=== PATIENT | male | born 1995 | race African-American/Black ===

== ENCOUNTER 2017-01-24 13:49 | Emergency (ER) | payer SELFPAY ==
[2017-01-24 14:18] VITALS: BP 143/84
--- NOTE | 2017-01-24 14:48 | EDM.PDOC ---
ED HPI RENAL/ - General Chief Complaint: Genitourinary Problem Stated Complaint: WANTS CHECKED FOR STD Time Seen by Provider: 01/24/17 14:34 Source of Information: Reports: Patient History Limitations: Reports: No limitations - History of Present Illness INITIAL COMMENTS - FREE TEXT/NARRATIVE: Patient is a 21-year-old man with concerns he may have syphilis. Developed a small painful lesion to the dorsal aspect shaft of his penis with increased swelling noted. This started approximately 2 days ago. Since then the swelling and pain have subsided. He has a small area with dry skin to the top of it with no drainage/redness noted. States his girlfriend has been cheating on him. Shes had unprotected sex with multiple partners that may have syphilis. He does have a history of STDs in the past. States this was gonorrhea/Chlamydia treated with antibiotics. He has no painful urination at this time. Denies additional lesions to his genital area. In addition patient utilizes marijuana daily and uses methamphetamines with last use this past Saturday. He drinks alcohol every day. - Related Data Allergies/ADRs: Allergies Allergy/AdvReac Type Severity Reaction Status Date / Time amoxicillin Allergy Rash Verified 01/24/17 14:19 Home Meds: Home Meds . [No Known Home Meds] 01/24/17 [History] Past Medical History - Past Health History Medical/Surgical History: Denies Medical/Surgical History Social & Family History - Family History Family Medical History: Noncontributory - Tobacco Use Smoking Status *Q: Current Every Day Smoker Years of Tobacco use: 8 Packs/Tins Daily: 0.2 - Caffeine Use Caffeine Use: Reports: Coffee, Energy drinks, Soda, Tea - Alcohol Use Days Per Week of Alcohol Use: 6 Number of Drinks Per Day: 5 Total Drinks Per Week: 30 - Recreational Drug Use Recreational Drug Use: Yes Recreational Drug Type: Reports: Marijuana/Hashish, Methamphetamine ED ROS GENERAL - Review of Systems Review Of Systems: See Below : Denies: discharge, dysuria, frequency, hematuria, pain, urgency Skin: Reports: lesions (one lesion to the shaft of penis) ED EXAM, RENAL/ - Physical Exam Exam: See Below Exam Limited By: No limitations General Appearance: alert, WD/WN, no apparent distress Ears: hearing grossly normal Nose: normal inspection Throat/Mouth: Normal voice, No airway compromise Neck: normal inspection, supple Respiratory/Chest: no respiratory distress, lungs clear, normal breath sounds Cardiovascular: normal peripheral pulses, regular rate, rhythm GI/Abdominal: normal bowel sounds, soft, non tender (Male) Exam: Other (small 2mm lesion to the dorsal aspect of his penis. it is elevated with white piece of skin/scab present. no drainage, redness, purulent drainage. no additional lesions. Does not appear to be genital warts , molloscum contagiosum, syphilis, herpes, or a painful chancre. No drainage noted from the urethra meatus. ). No: Circumcised Course - Vital Signs Last Recorded V/S: Last Vital Signs Temp 98.7 F 01/24/17 14:14 Pulse 67 01/24/17 14:14 Resp 16 01/24/17 14:14 BP 143/84 H 01/24/17 14:14 Pulse Ox 100 01/24/17 14:14 - Orders/Labs/Meds Orders: Active Orders 24 hr Category Date Time Status RPR [REF] Stat Lab 01/24/17 15:00 Received - Re-Assessments/Exams Free Text/Narrative Re-Assessment/Exam: He has requested to be tested for only syphilis here in the ED. This is a send out. He will go to [facility] for further STD testing. Patient to be discharged home with instructions. Departure - Departure Time of Disposition: 15:23 Disposition: Home, Self-Care 01 Clinical Impression: Concern about STD in male without diagnosis Referrals: PCP,None [Primary Care Provider] - Juno Shaffer PA-C [Physician Coffee Supervisor] - Forms: ED Department Discharge Additional Instructions: Results of syphilis test will be available in the next 3-5 days. If you have not been contacted please call the ER at [phone] for lab results. Followup with a provider at [facility] as needed. For further STD testing go to [facility]. Refrain from sexual contact until all testing has been conducted. Refrain from methamphetamine or marijuana use. For further treatment for alcohol and recreational drugs [facility] and treatment. Return back to ED as needed for worsening symptoms. - My Orders Last 24 Hours: My Active Orders 01/24/17 15:00 RPR [REF] Stat - Assessment/Plan Last 24 Hours: My Active Orders 01/24/17 15:00 RPR [REF] Stat
== END 2017-01-24 15:31 | disposition home or self-care (01) ==
LOC: JD.ED 13:49
DX: N50.9 Disorder of male genital organs, unspecified (principal); F17.210 Nicotine dependence, cigarettes, uncomplicated; Z88.1 Allergy status to other antibiotic agents
CPT/HCPCS: 36415; 86592; 99281; 99283

== ENCOUNTER 2017-03-28 17:11 | Emergency (ER) | payer SELFPAY ==
[2017-03-28 17:35] VITALS: BP 127/73
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
--- NOTE | 2017-03-28 19:19 | CR ---
Left ankle: 4 views of the left ankle were obtained. Comparison: No previous study. Ankle mortise is symmetric. Lucent line is noted on one view within the lateral malleolus. Difficult to exclude a nondisplaced fracture. No additional bony abnormality is appreciated. Impression: 1. Difficult to exclude a nondisplaced distal fibular fracture through the lateral malleolus. Follow-up study would be helpful in 10-14 days to rule out or rule in this possibility if clinically indicated. 2. Left ankle study is otherwise unremarkable. Diagnostic code #3
== END 2017-03-28 18:45 | disposition home or self-care (01) ==
LOC: JD.ED 17:11
DX: S93.402A Sprain of unspecified ligament of left ankle, initial encounter (principal); X50.1XXA Overexertion from prolonged static or awkward postures, initial encounter; F17.210 Nicotine dependence, cigarettes, uncomplicated; Z88.1 Allergy status to other antibiotic agents; Y93.55 Activity, bike riding
CPT/HCPCS: 73610-26-LT; 73610-LT; 99282; 99283

== ENCOUNTER 2017-06-09 00:11 | Emergency (ER) | payer SELFPAY ==
[2017-06-09] MEDS ORDERED: Lidocaine 1% with EPINEPHrine 1:100,000 20 ML MDV INJECT ONE (00:58)
--- NOTE | 2017-06-09 01:52 | EDM.PDOC ---
ED HPI GENERAL MEDICAL PROBLEM - General Chief Complaint: Laceration Stated Complaint: LACERATION TO LEFT HAND Time Seen by Provider: 06/09/17 00:25 Source of Information: Reports: Patient History Limitations: Reports: No Limitations - History of Present Illness INITIAL COMMENTS - FREE TEXT/NARRATIVE: 21-year-old male with left thumb injury. He was cutting food with a kitchen knife and accidentally stabbed his left thumb web area. Denies additional injury. This was just prior to coming to the emergency department. Mild bleeding , moderate pain. No numbness or weakness. Left 1-Thumb Pain Score (Numeric/FACES): 4 - Related Data Allergies Allergy/AdvReac Type Severity Reaction Status Date / Time amoxicillin Allergy Rash Verified 03/28/17 17:35 Home Meds: Home Meds . [No Known Home Meds] 01/24/17 [History] Past Medical History - Past Health History Medical/Surgical History: Denies Medical/Surgical History Social & Family History - Family History Family Medical History: Noncontributory - Tobacco Use Smoking Status *Q: Never Smoker Years of Tobacco use: 9 Packs/Tins Daily: 1 Second Hand Smoke Exposure: No - Caffeine Use Caffeine Use: Reports: Energy Drinks - Alcohol Use Days Per Week of Alcohol Use: 6 Number of Drinks Per Day: 5 Total Drinks Per Week: 30 - Recreational Drug Use Recreational Drug Use: Yes Drug Use in Last 12 Months: Yes Recreational Drug Type: Reports: Marijuana/Hashish Recreational Drug Use Frequency: Daily ED ROS GENERAL - Review of Systems Review Of Systems: See Below Constitutional: Reports: No Symptoms Respiratory: Reports: No Symptoms Skin: Reports: Wound Neurological: Denies: Numbness, Paresthesia ED EXAM, SKIN/RASH Exam: See Below Exam Limited By: No Limitations General Appearance: Alert, WD/WN, No Apparent Distress Extremities: Other (Left hand: 1 cm laceration to the dorsal surface of the webspace between the thumb and index finger, subcutaneous, no visible foreign body, minimal bleeding, full range of motion of thumb and fingers) ED SKIN PROCEDURES - Laceration/Wound Repair Left Hand Lac/Wound length In cm: 1 Appearance: Subcutaneous Distal NVT: Neuro & Vascular Intact, No Tendon Injury Anesthetic Type: Local Local Anesthesia - Lidocaine (Xylocaine): 1% With EPI Exploration/Debridement/Repair: Wound Explored, in a Bloodless Field, Explored to Base, No Foreign Material Found Closed with: Sutures Suture Size: other (5-0) # of Sutures: 1 Suture Type: Nylon, Simple Sterile Dressing Applied: Nurse Tetanus Status Addressed: Yes Complications: No Course - Vital Signs Last Recorded V/S: Last Vital Signs Temp 36.7 C 06/09/17 00:16 Pulse 78 06/09/17 00:16 Resp 16 06/09/17 00:16 BP Pulse Ox 100 06/09/17 00:16 - Orders/Labs/Meds Meds: Medications Discontinued Medications Generic Name Dose Route Start Last Admin Trade Name Clayton PRN Reason Stop Dose Admin Lidocaine/Epinephrine 20 ml 06/09/17 00:58 06/09/17 01:43 Xylocaine 1% With Epinephrine 1:100,000 INJECT 06/09/17 00:59 20 ml ONETIME ONE Administration Departure - Departure Time of Disposition: 01:50 Disposition: Home, Self-Care 01 Clinical Impression: Laceration of left hand Qualifiers: Encounter type: initial encounter Foreign body presence: without foreign body Qualified Code(s): S61.412A - Laceration without foreign body of left hand, initial encounter - Discharge Information Instructions: Laceration Care, Adult Referrals: PCP,None [Primary Care Provider] - Forms: ED Department Discharge Additional Instructions: 1. Keep wound clean and dry. OK to wash with gentle soap and water. After washing hand, cover wound with antibiotic cream and put a bandage on it. 2. Sutures should be removed in approximately 10 days. Call [phone] to schedule appointment with walk in clinic for removal. 3. Return to the ED if you have increased pain, swelling, or pus under the wound.
== END 2017-06-09 02:03 | disposition home or self-care (01) ==
LOC: JD.ED 00:11
DX: S61.412A Laceration without foreign body of left hand, initial encounter (principal); Z88.1 Allergy status to other antibiotic agents; W26.0XXA Contact with knife, initial encounter
CPT/HCPCS: 12001; 99282-25; 99283-25

== ENCOUNTER 2018-05-24 13:02 | Emergency (ER) | payer SELFPAY ==
[2018-05-24 13:26] VITALS: BP 124/73
--- NOTE | 2018-05-24 14:33 | EDM.PDOC ---
ED HPI GENERAL MEDICAL PROBLEM - General Chief Complaint: Genitourinary Problem Stated Complaint: STD TEST/SWELLING IN THROAT Time Seen by Provider: 05/24/18 14:33 Source of Information: Reports: Patient History Limitations: Reports: No Limitations - History of Present Illness INITIAL COMMENTS - FREE TEXT/NARRATIVE: 22-year-old male presents for evaluation and treatment 2 different complaints. Patient reports that he is having a sore throat and odynophagia. This has been going on for the last few days. He denies any fevers, chills, nausea or vomiting. Pain is primarily located on the right side. No cough. Reports knowing of somebody was recently diagnosed with strep but states he has not been around them recently. Patient is also complaining of a lesion to his dorsal penis. This is been present for the last few days. Was initially painful but is slowly improving. States that it does not hurt to urinate but when urine touches the lesion that is painful. No penile discharge. Reports that he's had unprotected intercourse with several woman over the last few months. The patient's ER records show that he was seen a little over a year ago for very similar complaint. He requested syphilis testing at that time which came back negative. Right Throat Pain Score (Numeric/FACES): 3 Perineal Area Pain Score (Numeric/FACES): 1 - Related Data Allergies Allergy/AdvReac Type Severity Reaction Status Date / Time amoxicillin Allergy Rash Verified 05/24/18 13:22 Home Meds: Home Meds valACYclovir [Valtrex] 1,000 mg PO BID #14 tab 05/24/18 [Rx] Past Medical History - Past Health History Medical/Surgical History: Denies Medical/Surgical History Social & Family History - Family History Family Medical History: Noncontributory - Tobacco Use Smoking Status *Q: Current Every Day Smoker Years of Tobacco use: 10 Packs/Tins Daily: 1 - Caffeine Use Caffeine Use: Reports: Energy Drinks, Soda - Recreational Drug Use Recreational Drug Type: Reports: Marijuana/Hashish Other Recreational Drug Type: last used yesterday ED ROS GENERAL - Review of Systems Review Of Systems: See Below Constitutional: Denies: Fever, Chills HEENT: Reports: Throat Pain, Other (reports odynophagia). Denies: Ear Pain Respiratory: Denies: Cough GI/Abdominal: Denies: Nausea, Vomiting : Reports: Other (denies any penile discharge ). Denies: Dysuria Skin: Reports: Lesions (penis) ED EXAM, RENAL/ - Physical Exam Exam: See Below Exam Limited By: No Limitations General Appearance: Alert, WD/WN, No Apparent Distress Ears: Normal External Exam Nose: Normal Inspection Throat/Mouth: Normal Inspection, Normal Lips, Normal Voice, No Airway Compromise , Other (right sided tonsilar exudate; no uluva deviation, no peritonsilar abscess appreciated ) Neck: Lymphadenopathy (L), Lymphadenopathy (R) Respiratory/Chest: No Respiratory Distress, Lungs Clear, Normal Breath Sounds Cardiovascular: Normal Peripheral Pulses, Regular Rate, Rhythm, No Murmur (Male) Exam: Penile Lesions (approximately 1cm dorsal penis, erythematous, no blisters) Neurological: Alert, Oriented, Normal Cognition Psychiatric: Normal Affect, Normal Mood Skin Exam: Warm, Dry, Normal Color Course - Vital Signs Last Recorded V/S: Last Vital Signs Temp 99.1 F 05/24/18 13:22 Pulse 90 05/24/18 13:22 Resp 14 05/24/18 13:22 BP 124/73 05/24/18 13:22 Pulse Ox 99 05/24/18 13:22 - Orders/Labs/Meds Labs: Laboratory Tests 05/24/18 05/24/18 05/24/18 Range/Units 13:25 14:50 14:50 WBC 4.86 (4.23-9.07) K/mm3 RBC 5.74 (4.63-6.08) M/mm3 Hgb 14.9 (13.7-17.5) gm/L Hct 45.6 (40.1-51.0) % MCV 79.4 (79.0-92.2) fl MCH 26.0 (25.7-32.2) pg MCHC 32.7 (32.2-35.5) g/dl RDW Std Deviation 40.6 (35.1-43.9) fL Plt Count 282 (163-337) K/mm3 MPV 9.3 L (9.4-12.3) fl Neut % (Auto) 45.3 (34.0-67.9) % Lymph % (Auto) 34.8 (21.8-53.1) % [place] % (Auto) 15.4 H (5.3-12.2) % Eos % (Auto) 2.9 (0.8-7.0) Baso % (Auto) 1.4 H (0.1-1.2) % Neut # (Auto) 2.20 (1.78-5.38) K/mm3 Lymph # (Auto) 1.69 (1.32-3.57) K/mm3 [place] # (Auto) 0.75 (0.30-0.82) K/mm3 Eos # (Auto) 0.14 (0.04-0.54) K/mm3 Baso # (Auto) 0.07 (0.01-0.08) K/mm3 Manual Slide Review Normal smear Urine Color Yellow (Yellow) Urine Appearance Clear (Clear) Urine pH 6.5 (5.0-8.0) Ur Specific [place] 1.025 (1.005-1.030) Urine Protein Negative (Negative) Urine Glucose (UA) Negative (Negative) Urine Ketones Negative (Negative) Urine Occult Blood Negative (Negative) Urine Nitrite Negative (Negative) Urine Bilirubin Negative (Negative) Urine Urobilinogen 0.2 (0.2-1.0) Ur Leukocyte Esterase Trace H (Negative) Urine RBC Not seen (0-5) /hpf Urine WBC 0-5 (0-5) /hpf Ur Epithelial Cells 0-5 (0-5) /hpf Urine Bacteria Few (FEW) /hpf Urine Mucus Few (FEW) /hpf Monoscreen Negative (NEGATIVE) - Re-Assessments/Exams Free Text/Narrative Re-Assessment/Exam: 05/24/18 14:39 Rapid strep returned negative. Concerned that the patient may have mono. He does not want to wait around for additional testing agrees to blood drawn I will call him with these results. His penile lesion is highly suspicious for herpes. He states that it is improving. We did swab the lesion to check for herpes. Discharge instructions as documented. 05/24/18 16:07 Called the patient and informed him of the negative monospot. 05/28/18 12:30 Patient presented to the ED today. He was informed of his positive HSV results. His GC/chlamydia canceled due to urine being to dilute. He was offered a retest but declined. He has not yet filled the Valtrex due to cost concerns. Encouraged him to go on fill the Rx as his penile lesion seems to be worsening. Educated on HXV infection and all questions answered to the best of my ability. Reports the sore throat is better. Departure - Departure Time of Disposition: 14:39 Disposition: Home, Self-Care 01 Condition: Fair Clinical Impression: Pharyngitis - Discharge Information Prescriptions: valACYclovir [Valtrex] 1,000 mg PO BID #14 tab Instructions: Pharyngitis, [id number] Referrals: PCP,None [Primary Care Provider] - Juno Shaffer PA-C [Physician Mine Inspector] - Forms: ED Department Discharge Additional Instructions: Take the Valtrex 1 tab twice a day for 7 days. We will call you notify you with your mono results later this afternoon. [id number] Tylenol or Motrin as needed for discomfort relief. Ensure drinking plenty of fluids. Recommend soft foods well your experiencing pain with swallowing. Recommend following up in the clinic to ensure that your symptoms have improved. recommend Juno Shaffer or Carmelita Valle at the [facility]. call [phone] to schedule with one of them. please return to the ER should you symptoms change or worsen.
== END 2018-05-24 14:55 | disposition home or self-care (01) ==
LOC: JD.ED 13:02
DX: J02.9 Acute pharyngitis, unspecified (principal); F17.210 Nicotine dependence, cigarettes, uncomplicated; Z88.1 Allergy status to other antibiotic agents
CPT/HCPCS: 36415; 81001; 85025; 86308; 87081; 87430; 87801; 99283

== ENCOUNTER 2018-07-18 10:32 | Emergency (ER) | payer SELFPAY ==
[2018-07-18 11:01] VITALS: BP 125/76
[2018-07-18] MEDS ORDERED: oxyCODONE 5 MG Tab PO ONE (11:27)
[2018-07-18] MEDS ORDERED: Acetaminophen Susp 325 MG/10.15 ML UD Cup PO ONE (11:33)
--- NOTE | 2018-07-18 11:48 | EDM.PDOC ---
ED HPI GENERAL MEDICAL PROBLEM - General Chief Complaint: Genitourinary Problem Stated Complaint: INJURY ON GROIN AREA Time Seen by Provider: 07/18/18 10:41 - History of Present Illness INITIAL COMMENTS - FREE TEXT/NARRATIVE: 22-year-old male presenting with chief complaint right testicular pain. 2 days ago the patient was jumping over a rail and caught the right side of his scrotum on it. Since that time he had increasing pain and swelling of the right side. Currently describes moderate to severe intensity pain localized to the right scrotum is nonradiating and worsened with movement. Patient can't describe any relieving factors tried no medications. Patient denies any dysuria or difficulty urinating. Associated Symptoms: Reports: No Other Symptoms Right Perineal Area Pain Score (Numeric/FACES): 8 - Related Data Allergies Allergy/AdvReac Type Severity Reaction Status Date / Time amoxicillin Allergy Rash Verified 07/18/18 10:46 Past Medical History - Past Health History Medical/Surgical History: Denies Medical/Surgical History - Infectious Disease History Infectious Disease History: Reports: Herpes Social & Family History - Family History Family Medical History: Noncontributory - Tobacco Use Smoking Status *Q: Current Every Day Smoker Years of Tobacco use: 11 Packs/Tins Daily: 1 Used Tobacco, but Quit: No - Caffeine Use Caffeine Use: Reports: Energy Drinks - Recreational Drug Use Recreational Drug Use: Yes Drug Use in Last 12 Months: Yes Recreational Drug Type: Reports: Marijuana/Hashish, Methamphetamine Other Recreational Drug Type: Uses marijuana every other day and methamphetamine every third day. Recreational Drug Use Frequency: Socially ED ROS GENERAL - Review of Systems Review Of Systems: See Below Constitutional: Reports: No Symptoms Respiratory: Reports: No Symptoms Cardiovascular: Reports: No Symptoms Endocrine: Reports: No Symptoms GI/Abdominal: Reports: No Symptoms : Reports: Other (Right testicular pain) Musculoskeletal: Reports: No Symptoms Skin: Reports: No Symptoms ED EXAM, RENAL/ - Physical Exam Exam: See Below Exam Limited By: No Limitations General Appearance: Alert Nose: Normal Inspection Head: Atraumatic, Normocephalic Respiratory/Chest: No Respiratory Distress Cardiovascular: Normal Peripheral Pulses, Regular Rate, Rhythm GI/Abdominal: Soft, Non-Tender (Male) Exam: No Hernia, Other (Right scrotum and testicle was hard, tender to palpation with a high riding leg. Left testicle is normal soft nontender to palpation. No abnormalities noted of the penis. No evidence of inguinal hernia.) Back Exam: Normal Inspection, Full Range of Motion Course - Vital Signs Last Recorded V/S: Last Vital Signs Temp 36.9 C 07/18/18 10:47 Pulse 107 H 07/18/18 10:47 Resp 18 07/18/18 10:47 BP 125/76 07/18/18 10:47 Pulse Ox 100 07/18/18 10:47 - Orders/Labs/Meds Meds: Medications Discontinued Medications Generic Name Dose Route Start Last Admin Trade Name [place] PRN Reason Stop Dose Admin Acetaminophen 975 mg 07/18/18 11:33 07/18/18 12:48 Tylenol Solution PO 07/18/18 11:34 Not Given ONETIME ONE Oxycodone HCl 10 mg 07/18/18 11:27 07/18/18 12:47 Oxycodone PO 07/18/18 11:28 Not Given ONETIME ONE - Re-Assessments/Exams Free Text/Narrative Re-Assessment/Exam: 07/18/18 12:56 Differential diagnoses: Scrotal hematoma, testicular torsion, testicular rupture , varicocele, hydrocele 23-year-old male presented with chief compliant of right scrotal or testicular pain. She'll evaluation patient is nontoxic vital signs. Physical exam was revealing of right-sided scrotal swelling and tenderness to palpation. Also higher riding. And tender to palpation. Testicular ultrasound was ordered. And revealed no intratesticular abnormality. Normal arterial and venous blood flow to both testicles. And what was felt to be a 2.4 cm hematoma on the right side inferior to the testicle. Also a right-sided varicocele is noted. While in the first part and the patient was treated with one dose of oxycodone one dose of Tylenol. I went over and discussed the results of the imaging with the patient. I expect this to resolve fully within a few weeks. He may use Tylenol and ibuprofen for analgesia as an outpatient. 07/18/18 12:58 Departure - Departure Time of Disposition: 12:59 Disposition: DC/Tfer to [facility] Condition: Good Clinical Impression: Varicocele Scrotal bruise Qualifiers: Encounter type: initial encounter Qualified Code(s): S30.22XA - Contusion of scrotum and testes, initial encounter - Discharge Information *PRESCRIPTION DRUG MONITORING PROGRAM REVIEWED*: No *COPY OF PRESCRIPTION DRUG MONITORING REPORT IN PATIENT JULIO: No Instructions: Scrotal Hematoma, Varicocele Referrals: PCP,None [Primary Care Provider] - Forms: ED Department Discharge Additional Instructions: You were seen and evaluated in the emergency department today for scrotal pain. At this time your History physical exam and diagnostic imaging tests indicate you have what is known as a scrotal hematoma. This is similar to a bruise. They also noted a varicocele on the right side as well, these are veins which are associated with testicle. At this time there appears to be no emergency associated with your pain. It is Safe to go home now. He may use Tylenol and ibuprofen [id number] home. If you have any new worsening or concerning symptoms please return to the emergency department at any time. Otherwise please follow up with a primary care provider.
--- NOTE | 2018-07-18 12:43 | US ---
Testicular ultrasound: Multiple real-time images of the testicles were obtained. Testicles have a homogeneous ultrasound appearance. No intratesticular abnormality is appreciated. Both arterial and venous blood flow are seen within the testicles. Heterogeneous area is seen inferior to the right testicle measuring 2.1 x 2.3 x 2.4 cm most likely due to hematoma. Minimal hydroceles are seen on both sides. Small epididymal cyst noted on the left side. Right sided varicocele is seen. Measurements: Right testicle: 3.6 x 2.3 x 2.9 cm Left testicle: 3.8 x 1.7 x 2.6 cm Impression: 1. No intratesticular abnormality is seen. 2. 2.4 cm hematoma is felt to be present inferior to the right testicle. 3. Right-sided varicocele is noted. 4. Incidental small epididymal cyst on the left side and incidental small hydroceles on both sides. Diagnostic code #3
== END 2018-07-18 13:20 ==
LOC: JD.ED 10:32
DX: S30.22XA Contusion of scrotum and testes, initial encounter (principal); I86.1 Scrotal varices; F17.210 Nicotine dependence, cigarettes, uncomplicated; Z88.1 Allergy status to other antibiotic agents; W23.1XXA Caught, crushed, jammed, or pinched between stationary objects, initial encounter
CPT/HCPCS: 76870; 76870-26; 93975; 99284-25

== ENCOUNTER 2019-05-03 22:29 | Emergency (ER) | payer MEDICAID ==
[2019-05-03 22:40] VITALS: BP 100/74
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
== END 2019-05-03 23:35 | disposition home or self-care (01) ==
LOC: JD.ED 22:29
DX: S61.512A Laceration without foreign body of left wrist, initial encounter (principal); W26.8XXA Contact with other sharp object(s), not elsewhere classified, initial encounter
CPT/HCPCS: 99282; 99284

== ENCOUNTER 2023-01-13 21:49 | Emergency (ER) | payer SELFPAY ==
[2023-01-13 21:59] VITALS: BP 154/88; PULSE 106
== END 2023-01-13 22:46 | disposition left against medical advice (07) ==
LOC: JD.ED 21:49
DX: Z53.21 Procedure and treatment not carried out due to patient leaving prior to being seen by health care provider (principal)